=== PATIENT | female | born 1945 | race Caucasian/White ===

== ENCOUNTER 2019-05-22 11:08 | Day surgery (SDC) | payer MEDICARE ==
[~2019-05-22] VITALS: Ht 165.1 cm; Wt 83.0 kg
[2019-05-22] MEDS: IV RINGERS,LACTATED 1000ML 1,000 ML IV ONE (11:41)
[2019-05-22] MEDS ORDERED: ROCURONIUM 50 MG/5 ML VIAL. ONE (11:43)
[2019-05-22] MEDS ORDERED: LIDOCAINE 2% PF 5 ML VIAL. ONE (11:43)
[2019-05-22] MEDS ORDERED: ONDANSETRON PF 4 MG/2 ML VIAL. ONE (11:43)
[2019-05-22] MEDS ORDERED: DEXAMETHASONE SOD PHOS 4 MG/ML VIAL ONE (11:43)
[2019-05-22] MEDS ORDERED: PROPOFOL 20 ML IV ONE (11:43)
[2019-05-22] MEDS ORDERED: fentaNYL PF VIAL 100 MCG/2 ML VIAL ONE (11:45)
[2019-05-22] MEDS ORDERED: SUCCINYLCHOLINE 200 MG/10 ML VIAL. ONE (11:47)
[2019-05-22] MEDS ORDERED: BUPIVACAINE-EPI 0.5%-1:200000 MPF 30 ML VIAL. ONE (12:07)
[2019-05-22] MEDS: SURGICEL HEMOSTAT 4X8 EACH. TP ONE (12:11)
[2019-05-22] MEDS: BUPIVACAINE-EPI 0.5%-1:200000 MPF 30 ML VIAL. INJ ONE (12:11)
[2019-05-22] MEDS ORDERED: IV RINGERS,LACTATED 1000ML 1,000 ML IV SCH (12:12)
[2019-05-22] MEDS ORDERED: PROCHLORPERAZINE 10 MG/2 ML VIAL. IV PRN (12:15)
[2019-05-22] MEDS ORDERED: fentaNYL PF VIAL 100 MCG/2 ML VIAL IV PRN ×2 (12:15)
[2019-05-22] MEDS ORDERED: LIDOCAINE 1% PF 2 ML VIAL. ID PRN (12:15)
[2019-05-22] MEDS ORDERED: HYDROmorphone 2 MG/ML VIAL IV PRN (12:15)
[2019-05-22] MEDS ORDERED: MORPHINE SULFATE 2 MG/ML VIAL. IV PRN (12:15)
[2019-05-22] MEDS ORDERED: ONDANSETRON PF 4 MG/2 ML VIAL. IV PRN (12:15)
[2019-05-22] MEDS ORDERED: SURGICEL HEMOSTAT 4X8 EACH. ONE (12:29)
--- NOTE | 2019-05-22 13:06 | DISCH ---
DISCHARGE INSTRUCTIONS Condition on Discharge Condition on Discharge: Stable Activity After Discharge Activity Instructions for Disc: Activity as tolerated, Avoid exertion Driving Instructions after Dis: Do not drive today Diet after Discharge Diet after Discharge: Regular Wound Incision Care Wound/Incision Care: Ice to area for comfort Other wound/incision instructi: leave dressing on Follow-Up Follow Up With: Narayan Saturday for dressing change CADE RAYGOZA MD May 22, 2019 13:06
[2019-05-22] MEDS ORDERED: HYDR-3164 PO ×2 (13:09→13:24)
[2019-05-22] MEDS ORDERED: HYDROcodone/APAP 5/325MG 1 TAB TABLET ONE (13:23)
--- NOTE | 2019-05-22 13:24 | PDOC ---
BRIEF OPERATIVE NOTE Date: May 22, 2019 Pre-Op Diagnosis sebaceous cyst and abscess back Post-Op Diagnosis same Procedure Performed excision cyst, excisional debridement of sebaceous abscess Surgeon Narayan Anesthesia Type: General Blood Loss 25cc IV Fluid 800cc Specimens Obtained skin and subcutaneous tissue left upper back 4x3x2 cm skin and subcutaneous tissue right mid back 6x3x2 cm Findings cyst, abscess Complications none Operative Note Wk # [id number] CADE RAYGOZA MD May 22, 2019 13:24
[2019-05-22] MEDS ORDERED: HYDROcodone/APAP 5/325MG 1 TAB TABLET PO ONE (13:30)
--- NOTE | 2019-05-22 13:36 | OP ---
DATE OF SURGERY: 05/22/2019 PREOPERATIVE DIAGNOSES: Sebaceous cyst, left upper back and sebaceous abscess, right mid back. POSTOPERATIVE DIAGNOSES: Sebaceous cyst, left upper back and sebaceous abscess, right mid back. PROCEDURE: Excision of cyst and excisional debridement of abscess. SURGEON: Cade Raygoza MD. ANESTHESIA: General endotracheal. BLOOD LOSS: 25. INTRAVENOUS FLUIDS: 800 mL. TISSUE SPECIMEN: Left upper back skin and subcutaneous tissue, 4 x 3 x 2 cm; right mid back skin and subcutaneous tissue, 6 x 3 x 2 cm. DESCRIPTION OF PROCEDURE: The patient brought to the operating suite, given a general endotracheal anesthetic, placed in the right lateral decubitus position and the back was prepped and draped in usual sterile fashion. A 0.5% Marcaine with epinephrine was infiltrated around the cyst in the left upper back. An elliptical skin incision was then made in the skin and underlying process removed en bloc. Hemostasis with cautery. Wound closed with interrupted 4-0 nylon sutures. We then turned our attention to the abscess. The dome of the abscess was scored with cautery in an elliptical fashion and the skin and underlying process were removed en bloc. This included skin, subcutaneous tissue down to muscle. The wound was cultured, irrigated and checked for hemostasis. When present and a correct sponge count was obtained, the wound was dressed with Surgicel and 1-inch plain Nu Gauze soaked in saline. Sterile dressings applied. The patient placed back in the supine position, awakened from her anesthetic and taken to the recovery room in satisfactory condition. CADE RAYGOZA MD DR: BO/ford JOB#: [id number] / [id number]
[2019-05-22 13:40] VITALS: BP 153/51
--- NOTE | 2019-05-25 15:07 | PATHOLOGY ---
[facility] Accession Number: [id number] . 01 Material submitted: . PART A: back - SKIN AND SUBCUTANEOUS TISSUE, LEFT UPPER BACK. Modifiers: left, upper PART B: back - SKIN AND SUBCUTANEOUS TISSUE, RIGHT MID BACK. Modifiers: right, mid . 01 Clinical history: . Sebaceous cyst, abscess and cellulitis. . 02 Diagnosis: A. Skin and subcutaneous tissue, left upper back: - Epidermal inclusion cyst. . B. Skin and subcutaneous tissue, right mid back: - Epidermal inclusion cyst, ruptured, with acute inflammation and abscess. . ([facility]:mml; 05/25/2019) [facility] 05/25/2019 1223 Local . 02 Comment: There is no evidence of malignancy. . (M:mml; 05/25/2019) . 02 Electronically signed: . Amos Arcos MD, Pathologist NPI- [id number] . 01 Gross description: . A. Received in formalin labeled "Rachel Henning, skin and subcutaneous tissue left upper back" is a resection of kim-yellow soft tissue and attached kim-white skin measuring entirely 3.5 x 3.2 x 2.4 cm. The skin measures 2.8 x 1.3 x 0.3 cm. Upon sectioning, a kim-white cystic structure containing kim-brown sebaceous material is identified, measuring 3.1 cm in greatest dimension. Checkout Operator section is submitted in cassette A1. . B. Received in formalin labeled "Juvencio Rachel, skin and subcutaneous tissue right mid back" is a resection of kim-yellow soft tissue and attached kim-brown skin measuring 5.4 x 2.7 x 2.4 cm. The skin surface is roughened and discolored over a 3.7 x 2.2 cm area. Upon sectioning, the cut surfaces are yellow-brown and focally necrotic, with a possible sebaceous cyst measuring 1.7 cm in greatest dimension. Checkout Operator sections are submitted in cassettes B1-B2. ([facility]; 05/24/2019) [facility] 05/25/2019 1221 Local . 02 Pathologist provided ICD-10: L72.0 . 02 CPT . 289773, 231371 Specimen Comment: A courtesy copy of this report has been sent to [phone] Specimen Comment: Report sent to / DR GONZALEZ Performed at: 01 [facility] [address], [place] [id number] MD Roverto Hewitt MD Phone: [phone] Performed at: [address] [facility] [address] [place], [place] [id number] MD Amos Arcos MD Phone: [phone]
== END 2019-05-22 13:55 | disposition home or self-care (01) ==
LOC: SURG 11:08
PROVIDERS: ATTEND Surgery
DX: L72.0 Epidermal cyst (principal); L08.89 Other specified local infections of the skin and subcutaneous tissue; L02.212 Cutaneous abscess of back [any part, except buttock and flank]; J44.9 Chronic obstructive pulmonary disease, unspecified; Z87.891 Personal history of nicotine dependence; Z90.49 Acquired absence of other specified parts of digestive tract; Z90.710 Acquired absence of both cervix and uterus
CPT/HCPCS: 10060; 11404; 87071; 87075; 88304; A7015; J0330; J1100; J2405; J2704; J3010; J3490; J0696